=== PATIENT | female | born 1980 | race Caucasian/White ===

== ENCOUNTER 2017-05-06 18:54 | Emergency (ER) | payer MEDICAID, SELFPAY ==
[2017-05-06 19:23] LABS: Bilirubin Negative (Negative); Blood, Urine Small (Negative); Clarity CLOUDY (Clear); Glucose, Urine (Dipstick) Negative (Negative); Leukocyte Moderate (Negative); Nitrite Negative (Negative); Protein, Urine (Dipstick) 30 mg/dL (Neg-Trace); Specific Gravity, Urine 1.025 (1.002-1.036)
[2017-05-06 19:26] LABS: Bacteria/HPF 4+ HPF (None Seen); Pathc Cast-AUWi Flag 1.92 (0-2.49); Squamous Epithelial 0-3 HPF (0-3); Yeast-AUWi Flag 371.1 (0-25.0)
[2017-05-06 19:27] LABS: Pregnancy Test - Urine (BHCG) Negative (Negative); Pregu Control Background? CLEAR/WHITE (CLR/WHITE); Pregu Control Bar Appear? YES (CONTROL BAR); Specific Gravity 1.025 (1.002-1.036)
[2017-05-06 19:36] LABS: Yeast-All Forms 2+ HPF (None Seen)
[2017-05-06 19:37] LABS: Crystals/HPF None Seen HPF (Negative); Hyaline Casts/LPF 0-3 HYALINE CAST LPF (0-3 Hyaline)
[2017-05-06] MEDS ORDERED: Ketorolac Tromethamine 30 MG/ML VIAL ONE (20:00)
[2017-05-06 20:54] LABS: #Eosinphils 0.1 thou/uL (0.0-0.7); #Lymphocytes 1.9 thou/uL (1.20-3.40); #Monocytes 0.4 thou/uL (0.11-0.59); #Neutrophils 4.6 thou/uL (1.40-6.50); %Basophils 0.3 % (0.0-1.0); %Eosinophils 1.2 % (0.0-10.0); %Lymphocytes 27.2 % (21.0-51.0); %Monocytes 6.3 % (0.0-10.0); %Neutrophils 65.1 % (42.0-75.0); Hemoglobin 14.7 g/dL (12.0-16.0); Mean Corpuscular HGB CONC 33.6 g/dL (32.0-36.0); Mean Corpuscular Hemoglobin 30.1 pg (27.0-31.0); Mean Corpuscular Volume 89.7 fl (81.0-99.0); Mean Platelet Volume 8.6 fL (7.4-10.4); Platelet Count 225 thou/uL (130-400); RBC Distribution Width 11.7 % (11.5-14.5); Red Blood Cell (RBC) Count 4.88 mill/uL (4.20-5.40); White Blood Cell (WBC) Count 7.1 thou/uL (4.8-10.8)
[2017-05-06] MEDS ORDERED: Ketorolac Tromethamine 60 MG/2 ML VIAL ONE (21:07)
[2017-05-06 21:36] LABS: Albumin 4.4 g/dL (3.5-5.0)
[2017-05-06 21:37] LABS: Chloride 106 mmol/L (98-107); Potassium 3.7 mmol/L (3.5-5.1); Sodium 138 mmol/L (136-145)
[2017-05-06 21:38] LABS: Calcium 9.6 mg/dL (7.8-10.44)
[2017-05-06 21:39] LABS: Globulin 3.2 g/dL (2.4-3.5); Glucose 77 mg/dL (70-105); Protein, Total 7.6 g/dL (6.0-8.3)
[2017-05-06 21:40] LABS: Anion Gap 12 mmol/L (10-20); Bilirubin, Total 0.3 mg/dL (0.2-1.2); Carbon Dioxide 24 mmol/L (22-29)
[2017-05-06 21:42] LABS: Alkaline Phosphatase 64 U/L (40-150); Calc. Creatinine Clearance 0 mL/min (70-130); Estimated GFR-MDRD 77
[2017-05-06 21:43] LABS: BUN (Urea Nitrogen) 9 mg/dL (7.0-18.7)
[2017-05-06 21:44] LABS: ALT (SGPT) 12 U/L (8-55); AST (SGOT) 13 U/L (5-34)
[2017-05-06] MEDS ORDERED: Sulfameth/Trimethoprim DS 800-160mg TAB ONE (21:56)
--- NOTE | 2017-05-06 21:56 | CT ---
CT ABDOMEN NONCONTRAST CT PELVIS NONCONTRAST: (urolithiasis protocol) DATE: 05/06/17 TIME: 8:57 p.m. HISTORY: 36-year-old female with left flank pain and dysuria. COMPARISON: 01/24/15. TECHNIQUE: IV injection of iodinated contrast media: none Oral contrast media: none FINDINGS: Other than for urolithiasis, the lack of IV and oral contrast limits the evaluation. The previously demonstrated IUD has since been removed from the uterus. Instead, there are new bilate ral Essure fallopian tube closure devices. There is a minimal amount of free fluid in the cul-de-sac, which is probably physiologic in a female patient of this age. No signs of acute colonic diverticuli tis, small bowel dilation, or pneumoperitoneum. Within the limitations of a noncontrast scan, no abno rmality is identified involving the liver, abdominal aorta, pancreas, adrenals, left kidney, spleen or appendix. There is a punctate 2 mm calculus at a right renal lower pole calyx, unchanged since 201 5. There is no hydronephrosis. No left renal calculus. No ureteral or bladder calculus. The urinary b ladder is partially decompressed. IMPRESSION: 1. Minimal right nephrolithiasis consisting of a single tiny 2 mm calculus of right kidney. 2. Otherwise, negative. FLAVIO Ramos POS: JULIO
== END 2017-05-06 22:04 | disposition home or self-care (01) ==
LOC: ERS 18:54
DX: N39.0 Urinary tract infection, site not specified (principal); F17.210 Nicotine dependence, cigarettes, uncomplicated
CPT/HCPCS: 36415; 74176; 80053; 81003; 81015; 81025; 85025; 87077; 87086; 96372; 99406; J1885

== ENCOUNTER 2017-10-20 12:10 | Emergency (ER) | payer SELFPAY | END 2017-10-20 12:43 | disposition home or self-care (01) | LOC: ERS 12:10 | DX: G56.01 Carpal tunnel syndrome, right upper limb (principal); F17.210 Nicotine dependence, cigarettes, uncomplicated | CPT/HCPCS: 99283 ==

== ENCOUNTER 2022-06-02 16:28 | Emergency (ER) | payer SELFPAY ==
[~2022-06-02 16:28] MED LIST: Iopamidol-370 76% 500 ML MDV (1 ML CHARGE) ONE
[2022-06-02] MEDS ORDERED: Aspirin Chewable 81 MG TAB ONE (17:06)
[2022-06-02 17:14] LABS: #Eosinphils 0.1 thou/uL (0.0-0.7); #Lymphocytes 1.2 thou/uL (1.20-3.40); #Monocytes 0.6 thou/uL (0.11-0.59); #Neutrophils 7.9 thou/uL (1.40-6.50); %Basophils 0.4 % (0.0-1.0); %Eosinophils 1.1 % (0.0-10.0); %Monocytes 5.7 % (0.0-10.0); %Neutrophils 80.7 % (42.0-75.0); Hemoglobin 11.6 g/dL (12.0-16.0); Mean Corpuscular Hemoglobin 27.6 pg (27.0-31.0); Mean Corpuscular Volume 81.1 fl (78.0-98.0); Mean Platelet Volume 8.8 fL (7.4-10.4); Platelet Count 308 10x3/uL (130-400); RBC Distribution Width 14.4 % (11.5-14.5); White Blood Cell (WBC) Count 9.8 10x3/uL (4.8-10.8)
[2022-06-02 17:38] LABS: ALT (SGPT) 10 U/L (8-55); AST (SGOT) 12 U/L (5-34); Albumin 4.3 g/dL (3.5-5.0); Alkaline Phosphatase 78 U/L (40-110); Anion Gap 12 mmol/L (10-20); BUN (Urea Nitrogen) 14 mg/dL (7.0-18.7); Bilirubin, Total 0.3 mg/dL (0.2-1.2); Calc. Creatinine Clearance 0 mL/min (70-130); Calcium 9.2 mg/dL (7.8-10.44); Carbon Dioxide 23 mmol/L (22-29); Chloride 108 mmol/L (98-107); Estimated GFR 87; Globulin 3.5 g/dL (2.4-3.5); Glucose 72 mg/dL (70-105); Lipase 35 U/L (8-78); Potassium 3.3 mmol/L (3.5-5.1); Protein, Total 7.8 g/dL (6.0-8.3); Sodium 140 mmol/L (136-145)
[2022-06-02 18:31] LABS: BHCG - Serum Negative (NEGATIVE); Pregs Control Background? CLEAR/WHITE (CLR/WHITE); Pregs Control Bar Appear? YES (CONTROL BAR)
== END 2022-06-02 19:36 | disposition home or self-care (01) ==
LOC: ERS 16:28
DX: J18.9 Pneumonia, unspecified organism (principal); F17.210 Nicotine dependence, cigarettes, uncomplicated
CPT/HCPCS: 71045; 71275; 80053; 83690; 84484; 84703; 85025; 85379; 93005; 94760; Q9967

== ENCOUNTER 2022-11-28 23:58 | Emergency (ER) | payer SELFPAY ==
[2022-11-29 00:18] LABS: Bacteria/HPF 4+ HPF (None Seen); Bilirubin Negative (Negative); Blood, Urine Negative (Negative); CAUTI Indications for Culture Dysuria,urgency,freq; Clarity Turbid (Clear); Glucose, Urine (Dipstick) Normal (Negative); Ketone, Urine Negative (Negative); Leukocyte 250 Leu/uL (Negative); Nitrite 2+ (Negative); Protein, Urine (Dipstick) 30 mg/dL (Neg-Trace); Specific Gravity, Urine 1.024 (1.002-1.036); Squamous Epithelial 21-50 HPF (0-3); Urobilinogen Normal mg/dL (Less than 2); WBC/HPF Greater than 50 HPF (0-3)
[2022-11-29 00:19] LABS: Pregnancy Test - Urine (BHCG) Negative (Negative); Pregu Control Background? CLEAR/WHITE (CLR/WHITE); Pregu Control Bar Appear? YES (CONTROL BAR); Specific Gravity 1.024 (1.002-1.036)
[2022-11-29 00:29] LABS: Urine Culture Reflex Yes Yes
[2022-11-29] MEDS ORDERED: Lidocaine 1% MPF 2 ML VIAL ONE (00:58)
[2022-11-29] MEDS ORDERED: Ketorolac Tromethamine 30 MG/ML VIAL ONE (00:58)
[2022-11-29] MEDS ORDERED: cefTRIAXone (ROCEPHIN) 1 GM VIAL ONE (00:58)
[2022-11-29] MEDS ORDERED: Ondansetron ODT 4 MG TAB ONE (00:58)
== END 2022-11-29 01:55 | disposition home or self-care (01) ==
LOC: ERS 23:58
DX: N10 Acute pyelonephritis (principal); N39.0 Urinary tract infection, site not specified; F17.210 Nicotine dependence, cigarettes, uncomplicated
CPT/HCPCS: 81001; 81025; 87077; 87086; 87186; 96372; 99283; J0696; J1885; Q0162

== ENCOUNTER 2023-08-30 14:46 | Emergency (ER) | payer SELFPAY ==
[2023-08-30 17:38] LABS: #Basophils 0.04 10x3/uL (0.0-0.2); %Basophils 0.8 % (0.0-1.0); %Eosinophils 1.6 % (0.0-10.0); %Lymphocytes 30.8 % (21.0-51.0); %Neutrophils 58.6 % (42.0-75.0); Hematocrit 32.8 % (36.0-47.0); Hemoglobin 10.2 g/dL (12.0-16.0); Mean Corpuscular HGB CONC 31.1 g/dL (32.0-36.0); Mean Corpuscular Hemoglobin 25.1 pg (27.0-31.0); Mean Corpuscular Volume 80.8 fL (78.0-98.0); Mean Platelet Volume 11.2 fL (7.4-10.4); Platelet Count 297 10x3/uL (130-400); Red Blood Cell (RBC) Count 4.06 mill/uL (4.20-5.40)
[2023-08-30 17:51] LABS: ALT (SGPT) 11 U/L (8-55); AST (SGOT) 14 U/L (5-34); Albumin 3.5 g/dL (3.5-5.0); Alkaline Phosphatase 50 U/L (40-110); Anion Gap 11 mmol/L (10-20); BUN (Urea Nitrogen) 13 mg/dL (7.0-18.7); Bilirubin, Total 0.2 mg/dL (0.2-1.2); Calc. Creatinine Clearance 0 mL/min (70-130); Calcium 8.4 mg/dL (7.8-10.44); Carbon Dioxide 19 mmol/L (22-29); Chloride 111 mmol/L (98-107); Estimated GFR 67; Globulin 2.8 g/dL (2.4-3.5); Glucose 119 mg/dL (70-105); Potassium 3.4 mmol/L (3.5-5.1); Protein, Total 6.3 g/dL (6.0-8.3); Sodium 138 mmol/L (136-145)
== END 2023-08-30 17:41 | disposition home or self-care (01) ==
LOC: ERS 14:46
DX: R55 Syncope and collapse (principal); F17.210 Nicotine dependence, cigarettes, uncomplicated
CPT/HCPCS: 80053; 83735; 93005